=== PATIENT | female | born 1985 | race Caucasian/White ===

== ENCOUNTER 2018-08-16 15:49 | Emergency (ER) | payer BC, MEDICAID ==
[~2018-08-16] VITALS: Ht 165.1 cm; Wt 72.6 kg
[~2018-08-16 15:49] MED LIST: PRE NATAL VITAMIN
[2018-08-16 16:56] VITALS: BP 146/5
== END 2018-08-16 18:09 | disposition home or self-care (01) ==
LOC: ER 15:49
DX: S93.402A Sprain of unspecified ligament of left ankle, initial encounter (principal); X50.1XXA Overexertion from prolonged static or awkward postures, initial encounter; Y93.89 Activity, other specified; Y99.8 Other external cause status; Y92.89 Other specified places as the place of occurrence of the external cause
CPT/HCPCS: 29515; 73610

== ENCOUNTER 2018-10-30 10:40 | Emergency (ER) | payer BC, MEDICAID ==
[~2018-10-30] VITALS: Ht 165.1 cm; Wt 77.1 kg
[2018-10-30] MEDS ORDERED: SODIUM CHLORIDE 0.9% 1,000 ML IV ONE (10:54)
[2018-10-30] MEDS ORDERED: ONDANSETRON HCL 4 MG/2 ML VIAL IV ONE (11:00)
[2018-10-30 11:56] LABS: BUN/Creatinine Ratio 18.4; Calcium 9.1 mg/dL (8.5-10.1); Potassium 3.8 mmol/L (3.5-5.1)
[2018-10-30 12:10] LABS: Urine Bacteria FEW /hpf (None Seen); Urine Blood TRACE /uL (Negative); Urine Mucus FEW (None Seen); Urine Specific Gravity 1.025 (1.001-1.035); Urine WBC 1 /hpf (0 - 5)
[2018-10-30] MEDS ORDERED: ACETAMINOPHEN 500 MG TAB PO ONE (14:15)
[2018-10-30 15:01] LABS: Basophils # (auto) 0 uL; Basophils % (auto) 0.3 % (0.0-2.0); Eosinophils # (auto) 0.1 uL; Eosinophils % (auto) 0.5 % (0.0-7.0); Hemoglobin 14.4 g/dL (12.2-16.2); Lymphocytes # (auto) 2.2 uL; Lymphocytes % (auto) 18.1 % (10.0-50.0); Mean Corpuscular Hemoglobin 30.9 pg (28.0-32.0); Mean Corpuscular Hgb Conc. 34.2 g/dL (32.0-36.0); Mean Corpuscular Volume 90.5 fL (80.0-100.0); Monocytes # (auto) 0.9 uL; Monocytes % (auto) 7.2 % (0.0-12.0); Neutrophils # (auto) 9.2 uL; Neutrophils % (auto) 73.9 % (37.0-80.0); Platelet Count (auto) 344 10^3/uL (140-450); Red Blood Cells 4.65 10^6/uL (4.0-5.20); Red Cell Distribution Width 12.8 % (11.8-14.3); White Blood Cell 12.4 10^3/uL (4.4-10.8)
[2018-10-30] MEDS ORDERED: NITROFURANTOIN (MONO) 100 mg CAP PO ONE (15:30)
[2018-10-30 19:02] VITALS: BP 115/68
== END 2018-10-30 19:03 | disposition home or self-care (01) ==
LOC: ER 10:41
DX: O21.9 Vomiting of pregnancy, unspecified (principal); R11.0 Nausea; Z3A.11 11 weeks gestation of pregnancy
CPT/HCPCS: 36415; 76801; 80048; 81001; 84702; 85025; 96361; 96374; 99284; J2405; J7030

== ENCOUNTER 2021-11-03 09:47 | Emergency (ER) | payer BC, MEDICAID ==
[~2021-11-03] VITALS: Ht 162.6 cm; Wt 78.0 kg
[2021-11-03] MEDS ORDERED: ONDANSETRON ODT 4 MG TAB PO ONE (12:15)
[2021-11-03] MEDS ORDERED: SODIUM CHLORIDE 0.9% 1,000 ML IV ONE (12:15)
[2021-11-03 12:24] LABS: Basophils # (auto) 0 10 ^3/uL (0-0.2); Basophils % (auto) 0.3 % (0.0-2.0); Eosinophils # (auto) 0.1 10 ^3/uL (0-0.8); Eosinophils % (auto) 1.1 % (0.0-7.0); Hematocrit 42.5 % (36.0-46.0); Hemoglobin 14.1 g/dL (12.2-16.2); Lymphocytes # (auto) 1.7 10 ^3/uL (0.4-5.4); Lymphocytes % (auto) 16.6 % (10.0-50.0); Mean Corpuscular Hgb Conc. 33.2 g/dL (32.0-36.0); Mean Corpuscular Volume 90.3 fL (80.0-100.0); Monocytes # (auto) 0.9 10 ^3/uL (0-1.3); Monocytes % (auto) 9.3 % (0.0-12.0); Neutrophils # (auto) 7.3 10 ^3/uL (1.6-8.6); Neutrophils % (auto) 72.7 % (37.0-80.0); Red Blood Cells 4.71 10^6/uL (4.0-5.20); Red Cell Distribution Width 13.4 % (11.8-14.3)
[2021-11-03 12:57] LABS: Potassium 4.1 mmol/L (3.5-5.1)
[2021-11-03 13:05] LABS: BUN/Creatinine Ratio 27.9; Bilirubin, Total 0.6 mg/dL (0.2-1.0); Magnesium 2.1 mg/dL (1.6-2.6); Total Protein 7.9 g/dL (6.4-8.2)
[2021-11-03 13:57] LABS: Urine Bacteria FEW /hpf (None Seen); Urine Blood Negative /uL (Negative); Urine Mucus FEW (None Seen); Urine Specific Gravity 1.028 (1.001-1.035); Urine WBC 1 /hpf (0 - 5)
[2021-11-03] MEDS ORDERED: HYDROcodone-ACET 5/325MG TAB PO ONE (14:30)
[2021-11-03 15:30] VITALS: BP 110/64
== END 2021-11-03 17:13 | disposition home or self-care (01) ==
LOC: ER 09:47
DX: K52.9 Noninfective gastroenteritis and colitis, unspecified (principal); R10.2 Pelvic and perineal pain; Z88.0 Allergy status to penicillin
CPT/HCPCS: 36415; 74176; 80053; 81001; 83605; 83690; 83735; 84702; 85025; 87045; 87177; 87427; 87493; 96360; 99284; J7030; Q0162